=== PATIENT | male | born 1980 | race Two or more races ===

== ENCOUNTER 2025-01-20 10:55 | Emergency (ER) | payer OTHER ==
[~2025-01-20] VITALS: Ht 180.3 cm; Wt 94.8 kg
[2025-01-20] MEDS ORDERED: CEFTRIAXONE SODIUM 1,000 MG VIAL IV ONE (12:00)
[2025-01-20] MEDS ORDERED: FAMOTIDINE/PF 20 MG/2 ML VIAL IV ONE (12:00)
[2025-01-20] MEDS ORDERED: 0.9 % SODIUM CHLORIDE 1,000 ML IV SCH (12:00)
[2025-01-20] MEDS ORDERED: KETOROLAC TROMETHAMINE 30 MG VIAL IV ONE (12:00)
[2025-01-20] MEDS ORDERED: KETOROLAC TROMETHAMINE 30 MG VIAL ONE (12:49)
[2025-01-20] MEDS ORDERED: FAMOTIDINE/PF 20 MG/2 ML VIAL ONE (12:49)
[2025-01-20] MEDS ORDERED: CEFTRIAXONE SODIUM 1,000 MG VIAL ONE (12:49)
[2025-01-20 13:34] LABS: BASO % 0.7 % (0.1-1.2); EOS # 0.09 (0.04-0.54); EOS % 1.6 % (0.7-7.0); LYMPH # 2.08 (1.18-3.74); LYMPH % 36.7 % (19.3-53.1); MEAN PLATELET VOLUME 11.10 fl (9.4-12.4); MONO # 0.45 (0.24-0.82); MONO % 8.0 % (4.7-12.5); NEUT # 3.00 (1.56-6.13); NEUT % 53.0 % (34.0-71.1); RED CELL DISTRIBUTION WIDTH 12.2 % (11.6-14.4)
[2025-01-20 13:49] LABS: ERYTHROCYTE SEDIMENTATION RATE 17 mm/hr (0-15); INR 0.98
[2025-01-20 13:52] LABS: ALT/SGPT 30 U/L (12-78); AST/SGOT 20 U/L (15-37); BILIRUBIN TOTAL 0.40 mg/dL (0.3-1.2); BUN CREA RATIO 16 (7.0-25.0); CREATININE SERUM 0.87 mg/dL (0.70-1.30); GFR 94.89; GLOBULINA 3.4 G/DL (2.4-3.5); GLUCOSE FASTING 87 mg/dL (65-100); OSMOLALITY SERUM 279 MOSM/KG (275-295)
[2025-01-20 16:17] LABS: URINE APPEARANCE Clear; URINE BILIRRUBIN Negative (NEGATIVE); URINE BLOOD Negative; URINE COLOR Yellow; URINE GLUCOSE Negative (NEGATIVE); URINE KETONE Negative (NEGATIVE); URINE LEUKOCYTE Negative; URINE NITRATE Negative; URINE PROTEIN Negative (NEGATIVE); URINE UROBILINOGEN 0.2 E.U./dl
[2025-01-20 16:25] LABS: URINE BACTERIA 1.1 uL (0.0-1933); URINE CAST 0.14 uL (0.0-1.40); URINE EPITHELIAL CELLS 0.0 uL (0.0-38.8); URINE RBC 0.5 uL (0.0-20.8); URINE WBC 0.9 uL (0.0-23.2)
[2025-01-20] MEDS ORDERED: IBU600 MG PO (17:18)
== END 2025-01-20 17:47 | disposition home or self-care (01) ==
LOC: ER 10:55
PROVIDERS: Student in an Organized Health Care Education/Training Program
DX: N50.3 Cyst of epididymis (principal)